=== PATIENT | male | born 1970 | race Hispanic/Latino ===

== ENCOUNTER 2018-01-29 06:20 | Day surgery (SDC) | payer BC ==
[2018-01-29 07:47] LABS: BASO % 0.6 % (0.0-2.0); EOS # 0.3 K/uL (0.0-0.7); EOS % 3.2 % (0.0-4.0); HEMOGLOBIN 14.2 g/dL (12.0-18.0); LYMPH # 1.5 K/uL (1.0-4.3); LYMPH % 18.4 % (20.0-40.0); MEAN CELL VOLUME 91.3 fL (80.0-94.0); MEAN CORPUSCULAR HEMOGLOBIN 31.4 pg (27.0-31.0); MEAN CORPUSCULAR HGB CONC 34.4 g/dL (33.0-37.0); MEAN PLATELET VOLUME 9.5 fL (7.2-11.7); MONO # 0.6 K/uL (0.0-0.8); MONO % 7.3 % (0.0-10.0); NEUT # 5.7 K/uL (1.8-7.0); NEUT % 70.5 % (50.0-75.0); NRBC % 0.1 % (0.0-2.0); RBC 4.52 Mil/uL (4.40-5.90); RED CELL DISTRIBUTION WIDTH 13.1 % (11.5-14.5); WHITE BLOOD COUNT 8.1 K/uL (4.8-10.8)
[2018-01-29 07:58] LABS: BLOOD UREA NITROGEN 19 mg/dL (9-20); CALCIUM 9.4 mg/dl (8.6-10.4); GFR NON-AFRICAN AMERICAN > 60
[2018-01-29 08:02] LABS: INR 0.9; PROTHROMBIN TIME 10.2 SECONDS (9.7-12.2)
--- NOTE | 2018-01-29 08:24 | C.PDOC ---
History Of Present Illness 47-year-old male, PMHx includes Seizures (on Trileptal), presents to the emergency department with complaints of wrist pain. Patient fell on outstretched left wrist 10 days ago. He was seen by Dr Meraz, and scheduled for surgery tochristina aceves. He denies any numbness/weakness, nausea/vomiting, fever, chills, or any other associated symptoms. No other complaints at this time. Time Seen by Provider: 01/29/18 07:12 Chief Complaint (Nursing): Upper Extremity Problem/Injury History Per: Patient History/Exam Limitations: no limitations Onset/Duration Of Symptoms: Days Past Medical History Reviewed: Historical Data, Nursing Documentation, Vital Signs Vital Signs: Last Vital Signs Temp 98.3 F 01/29/18 06:36 Pulse 65 01/29/18 06:36 Resp 20 01/29/18 06:36 BP 131/90 01/29/18 06:36 Pulse Ox 99 01/29/18 06:36 - Medical History PMH: Seizures Family History: States: No Known Family Hx - Social History Hx Alcohol Use: Yes Hx Substance Use: No - Immunization History Hx Tetanus Toxoid Vaccination: No Hx Influenza Vaccination: No Hx Pneumococcal Vaccination: No Review Of Systems Gastrointestinal: Negative for: Vomiting Skin: Negative for: Rash Neurological: Negative for: Weakness, Numbness Physical Exam - Physical Exam Appears: Non-toxic, No Acute Distress Skin: Warm, Dry, No Rash Head: Atraumatic Eye(s): bilateral: Normal Inspection Nose: Normal Oral Mucosa: Moist Lips: Normal Appearing Neck: Normal ROM Cardiovascular: Rhythm Regular, No Murmur Respiratory: Normal Breath Sounds, No Accessory Muscle Use Gastrointestinal/Abdominal: Soft, No Tenderness Extremity: Tenderness (mild), Capillary Refill (<2 seconds), No Deformity, No Swelling, Other (Removable splint on left wrist) Pulses: Left Radial: Normal, Right Radial: Normal Neurological/Psych: Oriented x3, Normal Speech ED Course And Treatment - Laboratory Results Result Diagrams: 01/29/18 07:44 01/29/18 07:44 ECG: Interpreted By Me, Viewed By Me ECG Rhythm: Sinus Rhythm ECG Interpretation: No Acute Changes Rate From EC O2 Sat by Pulse Oximetry: 99 Pulse Ox Interpretation: Normal (RA) Medical Decision Making Medical Decision Making: Plan: * EKG * X-Ray L Wrist * Reassess and Disposition Pre-op labs ordered. Patient admitted to Dr. Beal for surgery. Disposition - Disposition Disposition: HOSPITALIZED Disposition Time: 10:55 Condition: GOOD - Clinical Impression Clinical Impression: Left wrist fracture - Scribe Statement The provider has reviewed the documentation as recorded by the Scribe (Jacey Longoria) Provider Attestation: All medical record entries made by the Scribe were at my direction and personally dictated by me. I have reviewed the chart and agree that the record accurately reflects my personal performance of the history, physical exam, medical decision making, and the department course for this patient. I have also personally directed, reviewed, and agree with the discharge instructions and disposition.
--- NOTE | 2018-01-29 08:40 | RAD ---
Date of service: 01/29/2018 PROCEDURE: Left Thumb radiographs. HISTORY: Wrist injury COMPARISON: None. TECHNIQUE: AP radiograph of the left hand, as well as spot oblique and lateral images of thumb were obtained. FINDINGS: LEFT THUMB: Nondisplaced transverse fracture base of 1st metacarpal. No other fracture identified. Remainder of the left hand (as seen on the AP view) grossly unremarkable. JOINTS: Normal. SOFT TISSUES: Normal. OTHER FINDINGS: None. IMPRESSION: Nondisplaced fracture base of 1st metacarpal.
[2018-01-29] MEDS ORDERED: Bupivacaine 0.25% 20 ML INJ IJ ONE (11:23)
[2018-01-29] MEDS ORDERED: ceFAZolin 1 gm in NS 2 GM/200 ML BAG IVPB ONE (11:23)
[2018-01-29] MEDS ORDERED: Midazolam 2 MG/2 ML VIAL ONE (11:41)
[2018-01-29] MEDS ORDERED: Propofol 10 mg/ml Inj (20 ML) ONE (11:41)
[2018-01-29] MEDS ORDERED: Oxycodone/Acetaminophen 5/325 mg Tab PO PRN ×2 (12:29)
[2018-01-29] MEDS ORDERED: Lactated Ringer's 1,000 ML IV SCH ×2 (12:30)
--- NOTE | 2018-01-29 13:22 | RAD ---
Date of service: 01/29/2018 PROCEDURE: Left Thumb radiographs. HISTORY: s/p 1st metacarpal CRPP COMPARISON: None. TECHNIQUE: AP radiograph of the left hand, as well as spot oblique and lateral images of thumb were obtained. FINDINGS: LEFT THUMB: Status post ORIF intra-articular oblique fracture base of 1st metacarpal. Two pins traverse the previously identified fracture. Fracture fragments are in near anatomic alignment. No other fracture identified. Bony detail obscured by overlying fiberglass cast. Remainder of the left hand (as seen on the AP view) grossly unremarkable. JOINTS: Normal. SOFT TISSUES: Normal. OTHER FINDINGS: None. IMPRESSION: ORIF oblique intra-articular fracture base of 1st metacarpal.
[2018-01-29 14:06] VITALS: RESP 16; TEMP 97.6
[2018-01-29 14:32] VITALS: BP 136/91; PULSE 60
[2018-01-29 18:05] VITALS: O2SAT 99
--- NOTE | 2018-01-30 00:46 | OP ---
PROCEDURE DATE: 01/29/2018 PREOPERATIVE DIAGNOSIS: Displaced left thumb metacarpal base fracture, Britton's fracture. POSTOPERATIVE DIAGNOSIS: Displaced left thumb metacarpal base fracture, Britton's fracture. PROCEDURE: Left thumb Britton's fracture closed reduction, manipulation and percutaneous pinning; [id number]. SURGEON: Ryan Meraz MD. REGISTERED NURSE: BONNY Cazares. ANESTHESIA: General. ESTIMATED BLOOD LOSS: None. COMPLICATIONS: None. DISPOSITION: Stable to recovery room. INDICATIONS: A 47-year-old right hand dominant male who presents to [facility] Emergency Room with complaint of left thumb pain and deformity. The patient sustained a recent fall landing on his outstretched left hand. Initial x-rays confirmed displaced Britton's fracture. The patient was recommended surgery and taken to the operating room urgently for closed reduction and pinning of his fracture. Risks and benefits of the procedure were explained. Risks included but not limited to bleeding, infection, tendon or nerve or vessel injury, instability, chronic pain, potential need for additional surgery in the future. The patient understood the above risks and elected to proceed. Informed consent was obtained. DESCRIPTION OF PROCEDURE: The patient was brought to the operating room and placed supine on the operating room table. After general anesthesia was given and prophylactic antibiotics, the left upper extremity was prepped and draped in a standard surgical fashion, a time-out was performed. Fluoroscopic images again confirmed displaced thumb Britton's fracture. Under fluoroscopy, closed reduction was performed and this included traction, abduction and external rotation of the thumb. Fluoroscopic images confirmed anatomic reduction of the metacarpal base fracture. While holding reduction in place, two Adali wires of 3.5 mm were placed across the fracture site percutaneously providing stability to the fracture. The wires were cut short protruding through the skin . Fluoroscopic images again confirmed the anatomic reduction and stability of the thumb metacarpal base fracture in multiple plains. Xeroform was then applied to the skin, followed by 4 x 4's, sterile dressing and Josie. A thumb spica cast was then applied to the hand. The patient tolerated the procedure well and was returned to the recovery room in excellent condition. Ryan Meraz MD
--- NOTE | 2018-01-30 16:08 | CARD ---
APPROVED REPORT Date of service: 01/29/2018 EKG Measurement Heart [id number] <Conclusion> Sinus bradycardia with marked sinus arrhythmia Otherwise normal ECG
== END 2018-01-29 14:31 | disposition home or self-care (01) ==
LOC: C.SDS 06:20 → C.ER 06:20 → C.SDS 08:23
DX: S62.212A Bennett's fracture, left hand, initial encounter for closed fracture (principal); W18.30XA Fall on same level, unspecified, initial encounter
CPT/HCPCS: 26650; 73140; 80048; 85025; 85610; 85730; 93005; 99285; J0690; J1885; J2250; J2704; J3010